=== PATIENT | male | born 1975 | race Caucasian/White ===

== ENCOUNTER 2018-12-23 19:29 | Observation (INO) | payer MEDICAID ==
[~2018-12-23] VITALS: Ht 175.3 cm; Wt 109.1 kg
[2018-12-23] MEDS ORDERED: WELLBUTRIN XL150 M1 (19:47)
[2018-12-23] MEDS ORDERED: HYDROCHLOROTHIA50 MG (19:47)
[2018-12-23 20:12] LABS: APPEARANCE CLEAR (CLEAR); COLOR STRAW (YELLOW)
[2018-12-23 20:13] LABS: BILIRUBIN NEGATIVE (NEGATIVE); GLUCOSE NEGATIVE (NEGATIVE); KETONE NEGATIVE (NEGATIVE); NITRITE NEGATIVE (NEGATIVE); PROTEIN 1+ mg/dL (NEGATIVE); UROBILINOGEN NORMAL (NORMAL)
[2018-12-23 20:14] LABS: BACTERIA FEW /hpf (NONE SEEN); RED CELLS - URINE 0-5 /hpf (0-5); WHITE CELLS - URINE RARE /hpf (0-5)
[2018-12-23 20:27] LABS: UDS - AMPHET NEGATIVE QUAL (NEGATIVE); UDS - BARB NEGATIVE QUAL (NEGATIVE); UDS - BENZO NEGATIVE QUAL (NEGATIVE); UDS - COCAINE NEGATIVE QUAL (NEGATIVE); UDS - OPIATE NEGATIVE QUAL (NEGATIVE); UDS - PCP NEGATIVE QUAL (NEGATIVE); UDS - THC NEGATIVE QUAL (NEGATIVE)
[2018-12-23 20:31] LABS: BASOPHILS 0.4 % (0-2); EOSINOPHILS 2.4 % (0-7); HEMATOCRIT 42.8 % (42.0-54.0); IMMATURE GRANULOCYTES 0.1 % (0-5); LYMPHOCYTES 38.4 % (15-50); MCH 31.1 pg (26.0-34.0); MCV 88.8 fL (80.0-100.0); MEAN PLATELET VOLUME 8.6 fL (7.4-10.4); MONOCYTES 9.8 % (2-11); NEUTROPHILS 48.9 % (40-80); PLATELET COUNT 208 10x3/uL (130-400); RBC 4.82 10x6/uL (4.20-6.10); RDW 12.7 % (11.5-14.5)
[2018-12-23 20:56] LABS: ALBUMIN 4.1 g/dL (3.4-5.0); ALKALINE PHOSPHATASE 103 U/L (46-116); ALT (SGPT) 46 U/L (10-68); BILIRUBIN - TOTAL 0.74 mg/dL (0.2-1.3); CALC OSMOLALITY 283 mosm/kg (275-300); CALCIUM 8.5 mg/dL (8.5-10.1); CARBON DIOXIDE 26.3 mmol/L (21.0-32.0); CHLORIDE - SERUM 104 mmol/L (98-107); CREATININE - SERUM 1.1 mg/dL (0.6-1.3); GLUCOSE 103 mg/dL (74-106); MAGNESIUM - SERUM 2.2 mg/dL (1.8-2.4); POTASSIUM - SERUM 3.7 mmol/L (3.5-5.1); SODIUM 142 mmol/L (136-145); UREA NITROGEN 14 mg/dL (7-18); eGFR NON AFRICAN AMERICAN 78 mL/min (90-120)
[2018-12-24 04:02] VITALS: BP 122/78; Ht 175.3 cm; Wt 109.1 kg
[2018-12-24 06:36] LABS: BASOPHILS 0.5 % (0-2); EOSINOPHILS 2.9 % (0-7); HEMOGLOBIN 14.2 g/dL (13.5-17.5); IMMATURE GRANULOCYTES 0.3 % (0-5); LYMPHOCYTES 31.9 % (15-50); MCH 30.7 pg (26.0-34.0); MCHC 34.6 g/dL (31.0-37.0); MCV 88.6 fL (80.0-100.0); MEAN PLATELET VOLUME 8.7 fL (7.4-10.4); MONOCYTES 15.5 % (2-11); NEUTROPHILS 48.9 % (40-80); PLATELET COUNT 201 10x3/uL (130-400); RBC 4.63 10x6/uL (4.20-6.10); RDW 12.8 % (11.5-14.5); WBC 6.1 10x3/uL (4.8-10.8)
[2018-12-24 06:48] LABS: ALBUMIN 3.8 g/dL (3.4-5.0); ALKALINE PHOSPHATASE 97 U/L (46-116); ALT (SGPT) 36 U/L (10-68); BILIRUBIN - TOTAL 0.69 mg/dL (0.2-1.3); CALC OSMOLALITY 280 mosm/kg (275-300); CALCIUM 8.1 mg/dL (8.5-10.1); CARBON DIOXIDE 24.4 mmol/L (21.0-32.0); CHLORIDE - SERUM 105 mmol/L (98-107); GLUCOSE 85 mg/dL (74-106); POTASSIUM - SERUM 3.9 mmol/L (3.5-5.1); PROTEIN - SERUM 7.6 g/dL (6.4-8.2); SODIUM 141 mmol/L (136-145); UREA NITROGEN 14 mg/dL (7-18)
[2018-12-24 06:49] LABS: CREATININE - SERUM 0.8 mg/dL (0.6-1.3); eGFR NON AFRICAN AMERICAN > 90 mL/min (90-120)
[2018-12-24 08:58] VITALS: BP 138/85
[2018-12-24 14:14] VITALS: BP 154/95
[2018-12-24 17:27] VITALS: BP 160/92
[2018-12-24 20:18] VITALS: BP 145/99
[2018-12-25 00:37] VITALS: BP 156/97
[2018-12-25 05:34] VITALS: BP 158/95
[2018-12-25 05:52] LABS: BASOPHILS 0.5 % (0-2); EOSINOPHILS 3.8 % (0-7); HEMATOCRIT 41.3 % (42.0-54.0); HEMOGLOBIN 14.4 g/dL (13.5-17.5); LYMPHOCYTES 22.6 % (15-50); MCH 30.7 pg (26.0-34.0); MCHC 34.9 g/dL (31.0-37.0); MCV 88.1 fL (80.0-100.0); MEAN PLATELET VOLUME 8.9 fL (7.4-10.4); MONOCYTES 16.4 % (2-11); NEUTROPHILS 56.7 % (40-80); PLATELET COUNT 190 10x3/uL (130-400); RBC 4.69 10x6/uL (4.20-6.10); RDW 12.8 % (11.5-14.5); WBC 6.6 10x3/uL (4.8-10.8)
[2018-12-25 06:13] LABS: ALBUMIN 3.4 g/dL (3.4-5.0); ALKALINE PHOSPHATASE 92 U/L (46-116); ALT (SGPT) 33 U/L (10-68); BILIRUBIN - TOTAL 1.12 mg/dL (0.2-1.3); CALC OSMOLALITY 279 mosm/kg (275-300); CALCIUM 8.6 mg/dL (8.5-10.1); CARBON DIOXIDE 27.3 mmol/L (21.0-32.0); CHLORIDE - SERUM 103 mmol/L (98-107); CREATININE - SERUM 0.8 mg/dL (0.6-1.3); GLUCOSE 95 mg/dL (74-106); POTASSIUM - SERUM 3.8 mmol/L (3.5-5.1); PROTEIN - SERUM 7.4 g/dL (6.4-8.2); SODIUM 140 mmol/L (136-145); UREA NITROGEN 16 mg/dL (7-18); eGFR NON AFRICAN AMERICAN > 90 mL/min (90-120)
[2018-12-25 08:30] VITALS: BP 155/99
--- NOTE | 2018-12-25 12:17 | MORECARE ---
CASE MANAGEMENT DISCHARGE SUMMARY PATIENT: VIRGINIA ARSHAD UNIT: [id number] ADM DATE: 12/23/18 AGE: 43 : 75 SEX: M ROOM/BED: D.2226 AUTHOR: SAQIB DE JESUS PHYSICIAN: REFERRING PHYSICIAN: ASHLEY GUNN MD DATE OF SERVICE: 12/25/18 Discharge Plan Patient Name: VIRGINIA ARSHAD [facility] [facility] 1975 Planned Disposition: Inpatient Psych Facility Anticipated Discharge Date: Discharge Date: Expected LOS: Initial Reviewer: [email or web address] Initial Review Date: 12/23/2018 Generated: 12/25/18 1:17 pm Patient Name: VIRGINIA ARSHAD Page [id number] at 1217 All edits/amendments must be made on the electronic document DICTATION DATE: 12/25/18 1217 MANAGER OF EXHIBITIONS AND COLLECTIONS: BK 12/25/18 1217 RPT#: [id number] DC DATE: STATUS: ADM IN [facility] [address] [place] [address] END OF REPORT
--- NOTE | 2018-12-25 12:20 | CN ---
PATIENT NAME:VIRGINIA ARSHAD MEDICAL RECORD: [id number] : 75 LOCATION:D.[facility] [id number] ADMIT DATE: 12/23/18 ACCOUNT: [id number] CONSULTING PHYSICIAN: PRAVIN VINCENT MD REFERRING PHYSICIAN: ASHLEY GUNN MD DATE OF CONSULTATION: 12/23/2018 IDENTIFYING DATA: The patient is 43 years old and he presented to the Emergency Room secondary to suicidal thoughts. CHIEF COMPLAINT: Suicidal thoughts. HISTORY OF PRESENT ILLNESS: The patient is from [facility]. He has a history of alcoholism. He completed a residential substance abuse program a few months ago and maintained his sobriety until about a week ago. Over the past week, he has been drinking excessively and indeed when his blood work was drawn in the Emergency Room, he had a blood alcohol level of 298. The patient last night in the Emergency Room endorsed suicidal thoughts with a plan to hang himself with his belt. This morning, he is awake, alert, and sober. He tells me that he still wants to kill himself. He relates this to numerous psychosocial stressors. He has numerous neurovegetative depressive symptoms that he endorses. He denies thoughts of harming others. He denies active psychotic symptoms. ASSESSMENT: 1. Major depression, severe, recurrent without psychotic features. 2. Alcohol abuse. PLAN: The patient at this time is most likely medically stable. I would recommend that he be transferred to inpatient psychiatric care as soon, it is reasonable to do so. He is willing to go on a voluntary basis at this point; however, given the interview that I conducted and the circumstances of his presentation, I would not allow him to leave the hospital without being transferred to an inpatient psychiatric unit and if necessary I would place a court order on him for treatment. I view him as acutely and directly dangerous and intervention is required. He is unlikely to have significant alcohol withdrawal symptoms based on the fact that he has had at least 2 months of sobriety and only 1 week of active drinking. I would not anticipate serious alcohol withdrawal symptoms, but reasonable observation to ensure that does not happened is appropriate. Given the suicidal thoughts, I think the mental health diagnosis takes precedent over his substance abuse at this time, but obviously he will need additional outpatient or perhaps even inpatient substance abuse treatment as soon as this acute episode resolves. TRANSINT:[id number] Voice Confirmation ID: [id number] DOCUMENT ID: [id number] PRAVIN VINCENT MD at 1220 CC: [id number] DICTATION DATE: 12/24/18 1219 THERMODYNAMICS ENGINEER: 12/24/182019 ADM IN [facility] [address] [place] [address]
--- NOTE | 2018-12-25 12:34 | MORECARE ---
CASE MANAGEMENT DISCHARGE SUMMARY PATIENT: VIRGINIA ARSHAD UNIT: [id number] ADM DATE: 12/23/18 AGE: 43 : 75 SEX: M ROOM/BED: D.2226 AUTHOR: SAQIB DE JESUS PHYSICIAN: REFERRING PHYSICIAN: ASHLEY GUNN MD DATE OF SERVICE: 12/25/18 Discharge Plan Patient Name: VIRGINIA ARSHAD Facility: [facility]:[place] : 1975 Planned Disposition: Inpatient Psych Facility Anticipated Discharge Date: Discharge Date: Expected LOS: Initial Reviewer: [id number] Initial Review Date: 12/23/2018 Generated: 12/25/18 1:33 pm Comments DCP- Discharge Planning Updated by [id number]: Sharri Hernández on 12/25/18 11:[address] CM CONSULT RECEIVED . PSYCHIATRIC CONSULT W/ DR VINCENT WAS PENDING. PATIENT WAS SEEN THE AFTERNOON OF 12/24/18 . DICTATED NOTE REVIEWED THIS AM. THE PATIENT IS WILLING TO GO FOR INPATIENT PSYCH CARE. HE STATES HE HAS LIVED IN [place] ABOUT A MONTH AND A HALF. HE DID HAVE A JOB W/ ENVIROMENTAL SERVICES AT THE [facility]. HE PARENTS LIVE IN [place], [place]. HE STATES HE IS FROM [place], [place]. HE HAS 2 CHILFREN AGES 9 YRS AND 12 YEARS OLD. HE DOES NOT MAKE EYE CONTACT. SPEAKS VERY SOFTLY. LOOKING DOWN MOST OF THE TIME. ANSWERS QUESTIONS VERY BRIEFLY. HE HAS NOT HAD ANY PSYCH OR MENTAL SERVICES IN [place]. HE [facility] IN [place] " A WHILE BACK". HE DOES NOT HAVE A PCP. UTILIZES [facility] WHEN PHARMACY IS NEEDED. THE MEDICAL PLAN STATES INPATIENT PSYCH WOULD BE APPROPRIATE WHEN ETOH LEVEL WAS BELOW 100. CM WILL ADVISE THE PRIMARY NURSE ETOH LEVEL NEEDED. WILL NOTIFY EASY ADMIT FOR TRANSFER TO APPROPRIATE FACILITY. [facility] DOES NOT OFFER ADULT PSYCH SERVICES. Last DP export: 12/25/18 11:18 a Patient Name: VIRGINIA ARSHAD Page [phone] at 1234 All edits/amendments must be made on the electronic document DICTATION DATE: 12/25/18 1233 OFFICIAL GREETER: BK 12/25/18 1233 RPT#: [id number] DC DATE: STATUS: ADM IN [facility] [address] [facility] [place] [address] END OF REPORT
--- NOTE | 2018-12-25 12:58 | MORECARE ---
CASE MANAGEMENT DISCHARGE SUMMARY PATIENT: VIRGINIA ARSHAD UNIT: [id number] ADM DATE: 12/23/18 AGE: 43 : 75 SEX: M ROOM/BED: D.2226 AUTHOR: NEAL,DOC PHYSICIAN: REFERRING PHYSICIAN: ASHLEY GUNN MD DATE OF SERVICE: 12/25/18 Discharge Plan Patient Name: VIRGINIA ARSHAD Facility: [facility]:[place] : 1975 Planned Disposition: Inpatient Psych Facility Anticipated Discharge Date: Discharge Date: Expected LOS: Initial Reviewer: [email or web address] Initial Review Date: 12/23/2018 Generated: 12/25/18 1:57 pm Comments DCP- Discharge Planning Updated by [id number]: Sharri Hernández on 12/25/18 11:[address] THE PATIENT HAD A QUESTION REGARDING HIS INSURANCE. [employer] SYSTEM HAS BEEN DOWN SINCE WEDNESDAY PER ER REGISTRATION DCP- Discharge Planning Updated by [email or web address]: Sharri Hernández on 12/25/18 11:[address] TC TO EASY ADMIT TO FIND AN ADULT PSYCH BED. SPOKE W/ [employer]. FAXED THE FACE SHEET TO [phone]. EASY ADMIT [phone]. CM BRIDGET WILL BE FOLLOWING. DCP- Discharge Planning Updated by [email or web address]: Sharri Hernández on 12/25/18 11:[address] CM CONSULT RECEIVED . PSYCHIATRIC CONSULT W/ DR VINCENT WAS PENDING. PATIENT WAS SEEN THE AFTERNOON OF 12/24/18 . DICTATED NOTE REVIEWED THIS AM. THE PATIENT IS WILLING TO GO FOR INPATIENT PSYCH CARE. HE STATES HE HAS LIVED IN [place] ABOUT A MONTH AND A HALF. HE DID HAVE A JOB W/ ENVIROMENTAL SERVICES AT THE [employer]. HE PARENTS LIVE IN [place], [place]. HE STATES HE IS FROM [place], [place]. HE HAS 2 CHILFREN AGES 9 YRS AND 12 YEARS OLD. HE DOES NOT MAKE EYE CONTACT. SPEAKS VERY SOFTLY. LOOKING DOWN MOST OF THE TIME. ANSWERS QUESTIONS VERY BRIEFLY. HE HAS NOT HAD ANY PSYCH OR MENTAL SERVICES IN [place]. HE HAD SERVICES AT [facility] IN [place] " A WHILE BACK". HE DOES NOT HAVE A PCP. UTILIZES [facility] WHEN PHARMACY IS NEEDED. THE MEDICAL PLAN STATES INPATIENT PSYCH WOULD BE APPROPRIATE WHEN ETOH LEVEL WAS BELOW 100. CM WILL ADVISE THE PRIMARY NURSE ETOH LEVEL NEEDED. WILL NOTIFY EASY ADMIT FOR TRANSFER TO APPROPRIATE FACILITY. [facility] DOES NOT OFFER ADULT PSYCH SERVICES. Last DP export: 12/25/18 11:34 a Patient Name: VIRGINIA ARSHAD Page [phone] at 1258 All edits/amendments must be made on the electronic document DICTATION DATE: 12/25/18 1257 DIRECTOR CLINICAL APPLICATIONS: BK 12/25/18 1257 RPT#: [id number] DC DATE: STATUS: ADM IN [facility] [address] [place] [address] END OF REPORT
[2018-12-25 13:20] VITALS: BP 148/95
[2018-12-25 16:12] VITALS: BP 141/94
[2018-12-25 20:33] VITALS: BP 148/96
[2018-12-26 05:08] VITALS: BP 142/93
[2018-12-26 06:22] LABS: BASOPHILS 0.6 % (0-2); EOSINOPHILS 6.8 % (0-7); HEMATOCRIT 41.5 % (42.0-54.0); HEMOGLOBIN 14.5 g/dL (13.5-17.5); IMMATURE GRANULOCYTES 0.2 % (0-5); MCH 30.8 pg (26.0-34.0); MCHC 34.9 g/dL (31.0-37.0); MCV 88.1 fL (80.0-100.0); MEAN PLATELET VOLUME 9.2 fL (7.4-10.4); NEUTROPHILS 39.4 % (40-80); PLATELET COUNT 181 10x3/uL (130-400); RBC 4.71 10x6/uL (4.20-6.10); RDW 12.4 % (11.5-14.5)
[2018-12-26 06:25] LABS: WBC 4.7 10x3/uL (4.8-10.8)
[2018-12-26 07:11] LABS: ALBUMIN 3.4 g/dL (3.4-5.0); ALKALINE PHOSPHATASE 91 U/L (46-116); BILIRUBIN - TOTAL 0.99 mg/dL (0.2-1.3); CALC OSMOLALITY 277 mosm/kg (275-300); CALCIUM 8.9 mg/dL (8.5-10.1); CARBON DIOXIDE 26.5 mmol/L (21.0-32.0); CHLORIDE - SERUM 104 mmol/L (98-107); CREATININE - SERUM 0.9 mg/dL (0.6-1.3); GLUCOSE 93 mg/dL (74-106); POTASSIUM - SERUM 3.8 mmol/L (3.5-5.1); PROTEIN - SERUM 7.4 g/dL (6.4-8.2); SODIUM 139 mmol/L (136-145); UREA NITROGEN 13 mg/dL (7-18); eGFR NON AFRICAN AMERICAN > 90 mL/min (90-120)
[2018-12-26 07:19] LABS: ALT (SGPT) 30 U/L (10-68)
[2018-12-26 09:11] VITALS: BP 153/96
[2018-12-26 11:52] VITALS: BP 146/90
--- NOTE | 2018-12-26 13:18 | MORECARE ---
CASE MANAGEMENT DISCHARGE SUMMARY PATIENT: VIRGINIA ARSHAD UNIT: [id number] ADM DATE: 12/23/18 AGE: 43 : 75 SEX: M ROOM/BED: D.2226 AUTHOR: NEAL,DOC PHYSICIAN: REFERRING PHYSICIAN: ASHLEY GUNN MD DATE OF SERVICE: 12/26/18 Discharge Plan Patient Name: VIRGINIA ARSHAD Facility: [facility]:[place] : 1975 Planned Disposition: Inpatient Psych Facility Anticipated Discharge Date: Discharge Date: 12/26/2018 Expected LOS: Initial Reviewer: [email or web address] Initial Review Date: 12/23/2018 Generated: 12/26/18 2:17 pm DCP- Discharge Planning Updated by [email or web address]: Sharri Keya Paha on 12/25/18 11:[address] THE PATIENT HAD A QUESTION REGARDING HIS INSURANCE. [employer] SYSTEM HAS BEEN DOWN SINCE WEDNESDAY PER ER REGISTRATION DCP- Discharge Planning Updated by [id number]: Sharri Keya Paha on 12/25/18 11:[address] TC TO EASY ADMIT TO FIND AN ADULT PSYCH BED. SPOKE W/ KWABENA. FAXED THE FACE SHEET TO [phone]. EASY ADMIT [phone]. CM BRIDGET WILL BE FOLLOWING. DCP- Discharge Planning Updated by [email or web address]: Sharri Keya Paha on 12/25/18 11:[address] CM CONSULT RECEIVED . PSYCHIATRIC CONSULT W/ DR VINCENT WAS PENDING. PATIENT WAS SEEN THE AFTERNOON OF 12/24/18 . DICTATED NOTE REVIEWED THIS AM. THE PATIENT IS WILLING TO GO FOR INPATIENT PSYCH CARE. HE STATES HE HAS LIVED IN [place] ABOUT A MONTH AND A HALF. HE DID HAVE A JOB W/ ENVIROMENTAL SERVICES AT THE [employer]. HE PARENTS LIVE IN [place], [place]. HE STATES HE IS FROM [place], [place]. HE HAS 2 CHILFREN AGES 9 YRS AND 12 YEARS OLD. HE DOES NOT MAKE EYE CONTACT. SPEAKS VERY SOFTLY. LOOKING DOWN MOST OF THE TIME. ANSWERS QUESTIONS VERY BRIEFLY. HE HAS NOT HAD ANY PSYCH OR MENTAL SERVICES IN [place]. HE HAD SERVICES AT [facility] IN [place] " A WHILE BACK". HE DOES NOT HAVE A PCP. UTILIZES [facility] WHEN PHARMACY IS NEEDED. THE MEDICAL PLAN STATES INPATIENT PSYCH WOULD BE APPROPRIATE WHEN ETOH LEVEL WAS BELOW 100. CM WILL ADVISE THE PRIMARY NURSE ETOH LEVEL NEEDED. WILL NOTIFY EASY ADMIT FOR TRANSFER TO APPROPRIATE FACILITY. [facility] DOES NOT OFFER ADULT PSYCH SERVICES. Last DP export: 12/25/18 11:58 a Patient Name: VIRGINIA ARSHAD Page [phone] at 1318 All edits/amendments must be made on the electronic document DICTATION DATE: 12/26/181316 SAFETY EQUIPMENT TESTING SPECIALIST: BK 12/26/18 1317 RPT#: [id number] DC DATE:12/26/18 STATUS: DIS IN [facility] [address] [place] [address] END OF REPORT
== END 2018-12-26 12:53 | disposition other institution (70) ==
LOC: D.ER 19:29 → D.MS 21:39 → OBSVTIME 21:39 → D.MS 21:39
PROVIDERS: Emergency Medicine; Family Medicine; ADMIT Family Medicine; ATTEND Family Medicine
DX: F10.129 Alcohol abuse with intoxication, unspecified (principal); R45.851 Suicidal ideations; F32.9 Major depressive disorder, single episode, unspecified; I10 Essential (primary) hypertension